=== PATIENT | female | born 1990 | race Caucasian/White ===

== ENCOUNTER 2019-07-08 09:31 | Observation (INO) | payer BC | END 2019-07-08 12:30 | disposition home or self-care (01) | LOC: 8 EST LDRP 09:31 | PROVIDERS: ADMIT Obstetrics & Gynecology; ATTEND Obstetrics & Gynecology | DX: O36.8120 Decreased fetal movements, second trimester, not applicable or unspecified (principal); Z3A.21 21 weeks gestation of pregnancy | CPT/HCPCS: 76805; 99281; G0378 ==